=== PATIENT | male | born 1965 | race Caucasian/White ===

== ENCOUNTER 2025-08-14 07:31 | Outpatient (REF) | payer OTHER, SELFPAY ==
--- OUTSIDE RECORDS SUMMARY | 2025-08-14 07:37 | XMS_ITS | Encounter Summary ---
Author Organization [facility] Address [address] [place] [address] Phone Care Team Providers Care Neonatal Pediatric Nurse Name Role Phone Jim Solorzano MD Unavailable [phone] Guerita Muller NP Unavailable Dima Archibald MD Unavailable [phone] Jim Solorzano MD Primary Care Provider [phone] Unknown, Unknown Primary Care Provider Jim Jaimes MD Primary Care Provider [phone]- [phone] Encounter Details Date Type Department Care Team (Late st Contact Info) Description 11/02/2017 Ancillary Orders Virtual Department [address] [place] [address] Alhaji Calix MD [address], [address] [place] [address] [email or web address] Dysphagia, unspecified type Social History Tobacco Use Types Packs/Day Years Used Date Smoking Tobacco: Never Assessed Sex and Gender Information Value Date Recorded Sex Assigned at Male 10/12/2023 4:51 PM EST Legal Sex Male 9:39 PM EDT Gender Identity Male 10/12/2023 4:51 PM EST Sexual Orientation Straight 10/12/2023 4: 51 PM EST documented as of this encounter Plan of Treatment Not on file documented as of this encounter Results * FL BARIUM SWALLOW ESOPHAGRAM SINGLE CONTRAST (11/21/2017 9:23 AM EST) Anatomical Region Laterality Modality Chest Radiographic Marianela ging 11/21/2017 9:58 AM EST Impressions 11/21/2017 10:01 AM EST Essentially unremarkable study without aspiration or other dysmotility. Tiny cervical pulsion diverticulum of doubtful clinical significance without cricopharyngeal achalasia or mechanical obstructing lesion noted. FLUOROSCOPY TIME: 1 min. 3 sec; 57 IMAGES/FRAMES POS - [id number] Narrative 11/21/2017 10:01 AM EST COMPARISON: None FINDINGS: A preliminary lateral view of the neck reveals degenerative disc changes and small ventral osteophytes at C5-6 and C6-7 levels. A standard double contrast study was performed and recorded on digital rapid sequence, spot, and overhead views. Following ingestion of the contrast mixture deglutition was assessed fluoroscopically and found to be grossly normal without evidence of aspiration or cricopharyngeal achalasia. A tiny pulsion-type diverticulum is demonstrated at the C5-6 level. No abnormal propulsive waves were demonstrated in the thoracic esophagus. No mucosal ulcerations or strictures were apparent. There was slight prominence of the phrenic ampulla but no lower lower esophageal ring indicative of hiatal hernia was elicited during a prone Valsalva maneuver. Procedure Note Derrick Segura MD - 11/21/2017 COMPARISON: None FINDINGS: A preliminary lateral view of the neck reveals degenerative disc changesand small ventral osteophytes at C5-6 and C6-7 levels. A standard doublecontrast study was performed and recorded on digital rapid sequence, spot,and overhead views. Following ingestion of the contrast mixture deglutition was assessedfluoroscopically and found to be grossly normal without evidence ofaspiration or cricopharyngeal achalasia. A tiny pulsion-type diverticulumis demonstrated at the C5-6 level. No abnormal propulsive waves weredemonstrated in the thoracic esophagus. No mucosal ulcerations orstrictures were apparent. There was slight prominence of the phrenicampulla but no lower lower esophageal ring indicative of hiatal hernia waselicited during a prone Valsalva maneuver. IMPRESSION: Essentially unremarkable study without aspiration or other dysmotility.Tiny cervical pulsion diverticulum of doubtful clinical significancewithout cricopharyngeal achalasia or mechanical obstructing lesionnoted. FLUOROSCOPY TIME: 1 min. 3 sec; 57 IMAGES/FRAMES POS - [id number] Alhaji Calix MD IMG FL MISC Final Result documented in this encounter Visit Diagnoses Diagnosis Dysphagia, unspecified type Dysphagia, unspecified type documented in this encounter Care Teams Neonatal Pediatric Nurse Relationship Specialty Start Date End Date Jim Solorzano MD [address] [place] [address], [address] [place] [address] [email or web address] PCP - General 10/13/17 10/12/23 Unknown, Darlene, PCP - General 10/13/23 10/19/23 Jim Solorzano MD [address] [place] [address], [address] [place] [address] [email or web address] PCP - General Family Medicine 10/20/23 Jim Solorzano MD [address] [place] [address], [address] [place] [id number] [email or web address] Historical LMR Provider 07/26/17 10/12/23 Guerita Muller NP [address] [place] [address] [facility] [address] [email or web address] [facility] [email or web address] Historical LMR Provider 07/26/17 10/17/21 Dima Archibald MD [address] [place] [address], [address] [place] [address] [email or web address] Historical LMR Provider 07/26/17 2 documented as of this encounter Additional Source Comments The information contained in this document represents components of the legal health record. It is not the complete legal health record.[facility]
--- OUTSIDE RECORDS SUMMARY | 2025-08-14 07:38 | XMS_ITS | Clinical Summary ---
Author Organization [facility] Address [address] [place] [address] Phone Care Team Providers Care [employer] Operator Name Role Phone Jim Solorzano MD Primary Care Provider [phone] Allergies No known active allergies Medications albuterol (PROVENTIL HFA) 90 mcg/actuation inhaler Inhale 2 puffs into the lungs as needed. 06/18/2015 Active Active Problems Problem Noted Date Diagnosed Date Open displaced fracture of p halanx of toe of right foot with routine healing 11/03/2023 Displaced fracture of proxim al phalanx of right great toe, initial encounter for closed fracture 10/27/2023 Social History Tobacco Use Types Packs/Day Years Used Date Smoking Tobacco: Never Smokeless Tobacco: Never Tobacco Cessation:Counseling Given: Not Answered Alcohol Use Standard Drinks/Week Comments Yes 0 (1 standard drink = 0.6 oz pur e alcohol) Education Answer Date Recorded Are you interested in more education? Not on john e 02/04/2023 Are you concerned about learning? Not on file 02/04/2023 No 02/04/2023 No 02/04/2023 Digital Access Answer Date Recorded No 03/05/2023 No 03/05/2023 Reliable internet access at home? Not on file 03/05/2023 Device with a working camera? Not on file Intimate Partner Violence Answer Date R ecorded Are you denied basic needs s uch as food, clothing, or medical care? No 10/12/2023 In the past 12 months have y ou been in a relationship with a person who hurts, threatens, or tries to control you? No 10/12/2023 Are you denied basic needs s uch as food, clothing, or medical care? No 10/12/2023 In the past 12 months have y ou been in a relationship with a person who hurts, threatens, or tries to control you? No 10/12/2023 Sex and Gender Information Value Date Recorded Sex Assigned at Male 10/12/2023 4:51 PM EST Legal Sex Male 9:39 PM EDT Gender Identity Male 10/12/2023 4:51 PM EST Sexual Orientation Straight 10/12/2023 4: 51 PM EST Last Filed Vital Signs Vital Sign Reading Time Taken Comments Blood Pressure 169/98 10/12/2023 10:26 PM EST Pulse 72 10/12/2023 10:26 PM EST Temperature 36.8 C (98.3 F) 10/12/2023 10:26 PM EST Respiratory Rate 18 10/12/2023 10:26 PM EST Oxygen Saturation 96% 10/12/2023 10:26 PM EST Inhaled Oxygen Concentration - - Weight 83.9 kg (185 lb) 02/09/2024 8:51 AM EDT Height 172.7 cm (5' 8 ) 02/09/2024 8:51 AM EDT Body Mass Index 28.13 02/09/2024 8:51 AM EDT Plan of Treatment Health Maintenance Due Date Last Done Comments LIPID PANEL 1966 DEPRESSION SCREENING 1978 HEPATITIS C SCREENING 1984 HIV ONE-TIME SCREENING (18-65 YEARS) 1984 SCREENING FOR DIABETES 2001 COLOGUARD 2011 COLONOSCOPY 2011 COLORECTAL CANCER SCREENING 2011 FIT TEST 2011 FOBT 2011 SIGMOIDOSCOPY 2011 VIRTUAL COLONOSCOPY 2011 PNEUMOCOCCAL VACCINES (50+ years) (1 of 1 - PCV) 2016 ZOSTER VACCINES (1 of 2) 2016 Adult Td,Tdap Booster 09/21/2023 09/21/2013 INFLUENZA VACCINE (#1) 2025 2, 08/25/2021, 07/07/2020, Additional history exists COVID-19 VACCINE (3 - season) 2025 02/25/2021, 01/28/2021 RSV VACCINE (1 - 1-dose 75+ series) 2041 SMOKING STATUS SCREENING (Once After 26 Yrs) Completed 02/09/2024 HEPATITIS A VACCINES Aged Out No long er eligible based on patient's age to complete this topic HIB VACCINES Aged Out No longer eligi ble based on patient's age to complete this topic MENINGOCOCCAL VACCINES (ACWY) Aged Out No longer eligible based on patient's age to complete this topic MENINGOCOCCAL VACCINES (B) Aged Out N o longer eligible based on patient's age to complete this topic Medical Devices Not on file Insurance O O O O O O O O O O [employer] Care 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 It is not the complete legal health record.[facility]
[2025-08-14 13:38] LABS: MANUAL DIFF FLAG NO
[2025-08-14 13:57] LABS: Hematocrit 47.7 % (42.0-52.0); Hemoglobin 15.9 g/dl (14.0-18.0); Imm Gran Abs Auto 0.03 X10*3/uL (0.00-0.03); Imm Gran Pct Auto 0.5 % (0.0-0.4); Lymphocytes Absolute Auto 1.8 X10*3/uL (1.2-4.9); Mean Corpuscular HGB Conc 33.3 g/dl (31.0-36.0); Mean Corpuscular Hemoglobin 30.6 pg (27.0-33.0); Mean Corpuscular Volume 91.9 fL (80.0-98.0); NRBC Abs Auto 0.000 X10*3/uL (0.0-0.012); NRBC Pct Auto 0.0 /100WBC (0.0-0.2); Platelet Count 205 X10*3/uL (160-400); Red Blood Count 5.19 X10*6/uL (4.60-5.80); White Blood Count 6.6 X10*3/uL (4.8-10.8)
[2025-08-14 14:00] LABS: Hemoglobin A1C 142.3965 umol/L; Total Hemoglobin (HGBA1C) 4034.1302 umol/L
[2025-08-14 14:16] LABS: Alanine Aminotransferase 37 U/L (0-40); Albumin Level 4.5 g/dL (3.5-5.0); Alkaline Phosphatase 72 U/L (39-117); Anion Gap 11 (12-20); Aspartate Amino Transferase 27 U/L (5-37); Blood Urea Nitrogen 14 mg/dL (9-16); Calcium 9.0 mg/dL (8.4-10.2); Carbon Dioxide 28 mmol/L (22-29); Chloride 105 mmol/L (96-108); Cholesterol 219 mg/dL (<200); Estimated Glomerular Filt Rate 58; HDL Cholesterol 50 mg/dL (>40); Potassium 4.2 mmol/L (3.3-5.1); Sodium 140 mmol/L (135-145); Total Protein 6.9 g/dL (6.5-8.0); Triglycerides 226 mg/dL (<150)
[2025-08-14 14:17] LABS: Thyroid Stimulating Hormone 1.29 uIU/mL (0.32-4.0)
[2025-08-14 14:20] LABS: Prostate Specific Antigen 2.84 ng/mL (<0.05-4.0)
== END 2025-08-14 07:32 | disposition home or self-care (01) ==
LOC: HO.MANLDS 07:31
PROVIDERS: Visit Provider Internal Medicine
DX: Z12.5 Encounter for screening for malignant neoplasm of prostate (principal); Z13.6 Encounter for screening for cardiovascular disorders; Z13.1 Encounter for screening for diabetes mellitus; R19.4 Change in bowel habit
CPT/HCPCS: 36415; 80053; 80061; 82306; 83036; 84153; 84443; 85025